=== PATIENT | female | born 1985 | race Caucasian/White ===

== ENCOUNTER 2020-10-19 18:23 | Emergency (ER) | payer OTHER ==
[~2020-10-19] VITALS: Ht 162.6 cm; Wt 73.9 kg
[2020-10-19] MEDS ORDERED: SYNTHROID112 MCG (18:39)
[2020-10-19] MEDS ORDERED: PRENATAL FORMU1 EAC1 (18:40)
[2020-10-19] MEDS ORDERED: CHILDREN'S ASPI81 MG (18:40)
[2020-10-19] MEDS ORDERED: FUSION PLUS CA1 EACH (18:41)
== END 2020-10-19 20:42 | disposition home or self-care (01) ==
LOC: ER 18:23
DX: O98.512 Other viral diseases complicating pregnancy, second trimester (principal); B34.9 Viral infection, unspecified; Z3A.34 34 weeks gestation of pregnancy; Z20.822 Contact with and (suspected) exposure to COVID-19